=== PATIENT | male | born 1975 | race Caucasian/White ===

== ENCOUNTER → 2017-12-09 16:02 | Outpatient (CLI) | payer MEDICAID ==
[2016-06-07 10:25] VITALS: BMI 29.3
[~2017-12-09 16:02] MED LIST: NORCO 7.5/325 T1 TA1 PO; OMEPRAZOLE40 MG PO
[2017-12-09 16:20] LABS: HEMATOCRIT 41.4 % (42.0-54.0); HEMOGLOBIN 14.9 g/dL (13.5-17.5); LYMPHOCYTES 24.4 % (15-50); MCH 31.2 pg (26.0-34.0); MCV 86.6 fL (80.0-100.0); MEAN PLATELET VOLUME 9.7 fL (7.4-10.4); NEUTROPHILS 69.4 % (40-80); PLATELET COUNT 151 10x3/uL (130-400); RBC 4.78 10x6/uL (4.20-6.10); RDW 12.7 % (11.5-14.5); WBC 5.9 10x3/uL (4.8-10.8)
[2017-12-09 17:25] LABS: ALBUMIN 4.3 g/dL (3.4-5.0); ANION GAP 12.4 mmol/L (8-16); BILIRUBIN - TOTAL 0.7 mg/dL (0.2-1.3); CARBON DIOXIDE 26.7 mmol/L (21.0-32.0); CREATININE - SERUM 1.3 mg/dL (0.6-1.3); POTASSIUM - SERUM 4.1 mmol/L (3.5-5.1); PROTEIN - SERUM 6.9 g/dL (6.4-8.2)
== END | disposition home or self-care (01) ==
LOC: D.LAB 16:02
PROVIDERS: Internal Medicine Gastroenterology
DX: K62.5 Hemorrhage of anus and rectum (principal)

== ENCOUNTER → 2017-12-13 13:43 | Outpatient (CLI) | payer MEDICAID ==
[2016-06-07 10:25] VITALS: BMI 29.3
== END | disposition home or self-care (01) ==
LOC: D.LABREF 13:43
DX: K64.8 Other hemorrhoids (principal); Z86.010 Personal history of colon polyps; Z80.9 Family history of malignant neoplasm, unspecified; R19.4 Change in bowel habit

== ENCOUNTER → 2018-01-09 10:48 | Outpatient (CLI) | payer MEDICAID ==
[2016-06-07 10:25] VITALS: BMI 29.3
[2018-01-09 11:20] LABS: AMYLASE - SERUM 43 U/L (25-115); LIPASE 90 U/L (73-393)
== END | disposition home or self-care (01) ==
LOC: D.LAB 10:48 → D.CT 11:30
PROVIDERS: Internal Medicine Gastroenterology
DX: R10.84 Generalized abdominal pain (principal); K62.5 Hemorrhage of anus and rectum

== ENCOUNTER → 2018-01-23 08:37 | Outpatient (CLI) | payer MEDICAID ==
[2016-06-07 10:25] VITALS: BMI 29.3
== END | disposition home or self-care (01) ==
LOC: D.LAB 08:37
DX: K62.5 Hemorrhage of anus and rectum (principal)